=== PATIENT | female | born 1940 | race Caucasian/White ===

== ENCOUNTER 2016-07-09 08:11 | Day surgery (SDC) | payer MEDICARE, OTHER ==
[2016-07-09] MEDS ORDERED: Lactated Ringers 1,000 ML IV SCH (08:15)
[2016-07-09] MEDS ORDERED: Sodium Chloride 0.9% 10 ML Syringe FLUSH PRN (08:15)
[2016-07-09] MEDS ORDERED: Propofol 200 MG/20 ML SDV IV ONE (09:35)
[2016-07-09] MEDS ORDERED: Midazolam 1 MG/ML 2 ML SDV IV ONE (09:35)
--- NOTE | 2016-07-09 10:04 | PCM.OPNOTE ---
- General Post-Op/Procedure Note Date of Surgery/Procedure: 07/09/16 Operative Procedure(s): c scope Findings: normal colon Pre Op Diagnosis: colon cancer screening Post-Op Diagnosis: normal colon Primary Surgeon: Demetrio Ruiz Anesthesia Provider: Naomi Peterson Pathology: none Complications: None Condition: Good Free Text/Narrative:: see dictation
[2016-07-09 11:08] VITALS: BP 141/74
--- NOTE | 2016-07-09 12:35 | OR ---
DATE OF OPERATION: 07/09/2016 SURGEON: Demetrio Ruiz MD PROCEDURE PERFORMED: Colonoscopy. PREOPERATIVE DIAGNOSIS: Colon cancer screening. POSTOPERATIVE DIAGNOSIS: Normal colon. INDICATIONS FOR PROCEDURE: This is a 76-year-old white female referred for a followup colonoscopy. Last scope was 13 years ago. She was offered and accepted the same. DESCRIPTION OF OPERATION: After an excellent IV sedation was administered, digital rectal exam was performed. No marked abnormality was noted. The flexible colonoscope was inserted and advanced without difficulty to the cecum. The prep was excellent. The following findings were noted. Ascending colon, unremarkable. Transverse colon, unremarkable. Descending colon, unremarkable. Sigmoid and rectum unremarkable. Colon was deflated as the scope was removed. The patient tolerated the procedure well, and was taken to recovery room in good condition. /[id number] VENITA/ROBER
== END 2016-07-09 11:03 | disposition home or self-care (01) ==
LOC: FB.SDS 08:11
PROVIDERS: ATTEND Surgery
PROC: 0DJD8ZZ Inspection of Lower Intestinal Tract, Via Natural or Artificial Opening Endoscopic (ICD-10-PCS; principal; 2016-07-09)
DX: Z12.11 Encounter for screening for malignant neoplasm of colon (principal); I25.10 Atherosclerotic heart disease of native coronary artery without angina pectoris; I10 Essential (primary) hypertension; E78.5 Hyperlipidemia, unspecified; E66.01 Morbid (severe) obesity due to excess calories; Z68.31 Body mass index [BMI] 31.0-31.9, adult; Z90.49 Acquired absence of other specified parts of digestive tract; Z90.710 Acquired absence of both cervix and uterus; Z98.890 Other specified postprocedural states; Z88.2 Allergy status to sulfonamides; Z88.8 Allergy status to other drugs, medicaments and biological substances; Z79.82 Long term (current) use of aspirin; Z79.899 Other long term (current) drug therapy
CPT/HCPCS: 00902; G0121; J2250; J2704; J7120

== ENCOUNTER 2024-03-18 17:08 | Emergency (ER) | payer MEDICARE ==
[2024-03-18] MEDS ORDERED: Sodium Chloride 0.9% 10 ML Syringe FLUSH PRN (17:35)
[2024-03-18 17:47] VITALS: PULSE 69
[2024-03-18 17:52] LABS: BASOPHILS ABSOLUTE AUTO 0.1 x10-3/uL (0.0-0.1); BASOPHILS PERCENT AUTO 1.2 % (0.2-1.5); BLOOD UREA NITROGEN,BUN 31 mg/dL (7-18); CARBON DIOXIDE,CO2 26 mmol/L (21-32); CHLORIDE,CL 106 mmol/L (100-110); EOSINOPHILS ABSOLUTE AUTO 0.3 x10-3/uL (0.0-0.8); EOSINOPHILS PERCENT AUTO 3.4 % (0.6-8.1); EST CRCL DRUG DOSING (CG) 34.64 mL/min; ESTIMATED GFR 56 mL/min (>60); GLUCOSE RANDOM 149 mg/dL (80-116); HEMATOCRIT 42.4 % (34.2-48.2); HEMOGLOBIN 14.6 g/dL (11.4-15.5); LYMPHOCYTES ABSOLUTE AUTO 3.8 x10-3/uL (1.0-4.4); LYMPHOCYTES PERCENT AUTO 43.5 % (18.4-52.1); MEAN CORPUSCULAR HEMOGLOBIN 30.7 pg (23.9-33.9); MEAN CORPUSCULAR HGB CONC 34.5 g/dL (31.9-34.8); MEAN CORPUSCULAR VOLUME 89.1 fL (76.7-100.5); MEAN PLATELET VOLUME 8.8 fL (7.1-12.4); MONOCYTES ABSOLUTE AUTO 0.8 x10-3/uL (0.3-1.0); MONOCYTES PERCENT AUTO 8.9 % (4.4-15.7); NEUTROPHILS ABSOLUTE AUTO 3.8 x10-3/uL (1.5-6.3); PLATELET COUNT,PLT 253 x10(3)uL (151-488); POTASSIUM,K 4.1 mmol/L (3.5-5.3); RED BLOOD CELL COUNT 4.76 x10(6)uL (3.60-5.20); RED CELL DISTRIBUTION WIDTH 14.2 % (12.3-16.5); SODIUM,NA 141 mmol/L (135-145); WHITE BLOOD CELL COUNT,WBC 8.8 x10-3/uL (3.0-10.3)
[2024-03-18 17:58] LABS: A/G RATIO 1.2; ALANINE AMINOTRANSFERASE,ALT 31 U/L (12-36); ALBUMIN 3.6 g/dL (3.2-4.6); ALKALINE PHOSPHATASE 68 IU/L (56-112); ASPARTATE AMNIOTRANSFERASE,AST 17 IU/L (5-25); BILIRUBIN TOTAL 0.6 mg/dL (0.1-1.3); PROTEIN TOTAL,TP 6.7 g/dL (6.0-8.0)
[2024-03-18 18:05] LABS: PRO B-TYPE NATRIUR PEPT,BNPPRO 138 pg/mL (<=450)
[2024-03-18 18:08] LABS: C-REACTIVE PROTEIN < 0.50 mg/dL (<0.50)
[2024-03-18] MEDS: Nitroglycerin 0.4 MG Tab.SL SL PRN (18:32)
[2024-03-18] MEDS: Aspirin 81 MG Tab.Chew PO ONE (18:53)
[2024-03-18 18:57] VITALS: BP 158/61
== END 2024-03-18 20:17 | disposition home or self-care (01) ==
LOC: FB.ED 17:08
DX: R07.89 Other chest pain (principal); R06.02 Shortness of breath; I10 Essential (primary) hypertension; E78.00 Pure hypercholesterolemia, unspecified; M19.90 Unspecified osteoarthritis, unspecified site; E66.9 Obesity, unspecified; Z95.5 Presence of coronary angioplasty implant and graft; Z88.2 Allergy status to sulfonamides; Z88.5 Allergy status to narcotic agent; Z79.82 Long term (current) use of aspirin; Z79.899 Other long term (current) drug therapy; Z68.31 Body mass index [BMI] 31.0-31.9, adult
CPT/HCPCS: 36415; 71045; 80053; 83880; 84484; 85025; 86140; 93005; 99285; A9270